=== PATIENT | female | born 1995 | race Caucasian/White ===

== ENCOUNTER 2023-11-01 11:53 | Emergency (ER) | payer SELFPAY ==
[2023-11-01 12:11] VITALS: BP 124/80; PULSE 100; RESP 18; TEMP 98.6; BMI 33.6
== END 2023-11-01 13:12 | disposition home or self-care (01) ==
LOC: JERFT 11:53
DX: H92.03 Otalgia, bilateral (principal); H66.003 Acute suppurative otitis media without spontaneous rupture of ear drum, bilateral
CPT/HCPCS: 99283-25

== ENCOUNTER 2024-02-26 15:59 | Emergency (ER) | payer OTHER ==
[2024-02-26 16:08] VITALS: BP 127/82; PULSE 78; RESP 20; TEMP 97.9; BMI 33.6
[2024-02-26 18:27] LABS: HIV INTERPRETATION NEGATIVE (NEGATIVE)
== END 2024-02-26 17:34 | disposition home or self-care (01) ==
LOC: JER 15:59
DX: G44.209 Tension-type headache, unspecified, not intractable (principal); B35.9 Dermatophytosis, unspecified
CPT/HCPCS: 36415; 86803; 87389; 99283-25